=== PATIENT | male | born 1950 | race Caucasian/White ===

== ENCOUNTER 2017-04-25 10:08 | Emergency (ER) | payer MEDICARE, OTHER ==
[~2017-04-25] VITALS: Ht 182.8 cm; Wt 86.2 kg
[~2017-04-25 10:08] MED LIST: CHOLESTEROL MED; CIPROFLOXACIN500 MG PO; FLAGYL500 MG PO; FLEXERIL10 MG PO; LISINOPRIL10 MG PO; LOTRIMIN1% TP; METFORMIN500 MG PO; NAPROSYN500 MG PO; VICODIN 5/500 505 MG PO; VICODIN ES 7501 TAB PO; ZOFRAN ODT4 MG SL
[2017-04-25 10:13] VITALS: BP 167/64
[2017-04-25] MEDS ORDERED: NAPROSYN500 MG PO (10:29)
== END 2017-04-25 12:05 | disposition home or self-care (01) ==
LOC: ED 10:08
DX: S20.211A Contusion of right front wall of thorax, initial encounter (principal); R03.0 Elevated blood-pressure reading, without diagnosis of hypertension; F17.200 Nicotine dependence, unspecified, uncomplicated; Z88.6 Allergy status to analgesic agent; W18.30XA Fall on same level, unspecified, initial encounter; Y93.89 Activity, other specified; Y92.9 Unspecified place or not applicable; Y99.9 Unspecified external cause status

== ENCOUNTER → 2017-06-16 | Outpatient (CLI) | payer OTHER | END | disposition home or self-care (01) | LOC: US 12:57 | DX: E04.2 Nontoxic multinodular goiter (principal) ==

== ENCOUNTER → 2019-07-02 | Outpatient (CLI) | payer OTHER | END | disposition home or self-care (01) | LOC: US 14:56 | DX: E04.2 Nontoxic multinodular goiter (principal); R91.1 Solitary pulmonary nodule ==

== ENCOUNTER → 2019-09-15 | Outpatient (CLI) | payer OTHER ==
[2019-09-15 09:44] LABS: CREATININE 1.01 mg/dL (0.70-1.30)
== END ==
LOC: LAB 09:07 → CT 10:00
PROVIDERS: Radiology Diagnostic Radiology
DX: E04.2 Nontoxic multinodular goiter (principal); M47.812 Spondylosis without myelopathy or radiculopathy, cervical region; I65.21 Occlusion and stenosis of right carotid artery

== ENCOUNTER 2019-10-13 09:02 | Emergency (ER) | payer OTHER ==
[~2019-10-13] VITALS: Ht 182.8 cm; Wt 84.4 kg
[2019-10-13 09:27] LABS: BASO # 0.1 10*3/uL (0.0-0.1); BASO % 0.8 % (0.0-1.0); EOS # 0.2 10*3/uL (0.0-0.4); EOS % 2.3 % (1.0-4.0); HEMATOCRIT 47.9 % (42.0-52.0); HEMOGLOBIN 16.5 g/dl (14.0-18.0); LYMPH # 2.5 10*3/uL (1.3-4.4); LYMPH % 23.6 % (27.0-41.0); MEAN CELL VOLUME 90.2 fl (80.0-94.0); MEAN CORPUSCULAR HGB 31.1 pg (27.0-31.0); MEAN CORPUSCULAR HGB CONC 34.4 g/dl (33.0-37.0); MEAN PLATELET VOLUME 11.2 fl (9.6-12.3); MONO # 0.9 10*3/uL (0.1-1.0); MONO % 8.8 % (3.0-9.0); NEUT # 6.8 10*3/uL (2.3-7.9); NEUT % 64.1 % (47.0-73.0); PLATELET COUNT AUTOMATED 179 10*3/uL (130-400); RED BLOOD COUNT 5.31 10*6/uL (4.50-5.90); WHITE BLOOD COUNT 10.6 10*3/uL (4.8-10.8)
[2019-10-13 09:38] LABS: ACT PARTIAL THROMBO TIME 25.7 SECONDS (20.0-32.1); INTERNATIONAL NORM RATIO 0.9 (2.0-3.5)
[2019-10-13 09:43] LABS: ALBUMIN 4.1 gm/dl (3.1-4.5); ALKALINE PHOSPHATASE 78 U/L (45-117); BUN 9 mg/dl (7-24); CHLORIDE 108 mmol/L (98-107); CREATININE 0.83 mg/dL (0.70-1.30); POTASSIUM 3.2 mmol/L (3.5-5.1); SGOT/AST 19 IU/L (3-35); SGPT/ALT 50 U/L (12-78); SODIUM 141 mmol/L (136-145); TOTAL PROTEIN 7.1 gm/dL (6.4-8.2)
[2019-10-13 09:49] LABS: TROPONIN I < 0.015 ng/ml (<0.045)
[2019-10-13 10:30] VITALS: BP 152/64
== END 2019-10-13 12:44 | disposition home or self-care (01) ==
LOC: ED 09:02
PROVIDERS: Emergency Medicine
DX: R00.2 Palpitations (principal); R06.02 Shortness of breath; R07.9 Chest pain, unspecified; E11.9 Type 2 diabetes mellitus without complications; Z79.899 Other long term (current) drug therapy; Z88.6 Allergy status to analgesic agent

== ENCOUNTER → 2021-02-15 | Outpatient (CLI) | payer OTHER | END | disposition home or self-care (01) | LOC: CT 10:39 | PROVIDERS: ATTEND Nurse Practitioner Family | DX: I65.23 Occlusion and stenosis of bilateral carotid arteries (principal); E07.9 Disorder of thyroid, unspecified ==

== ENCOUNTER → 2022-02-18 | Day surgery (SDC) | payer OTHER ==
[~2022-02-18] VITALS: Ht 182.8 cm; Wt 80.3 kg
[~2022-02-18] MED LIST changes: +AMLODIPINE BESY10 MG PO; +LIPITOR80 MG PO; +METFORMIN HYD1000 MG PO; +VITAMIN D250 MC1 PO; +ZESTRIL20 MG PO
[2022-02-18 08:10] VITALS: BP 131/59
[2022-02-18 09:00] VITALS: BP 100/49
[2022-02-18 09:15] VITALS: BP 121/51
[2022-02-18 09:30] VITALS: BP 134/63
[2022-02-18 11:23] VITALS: BP 100/49
== END | disposition home or self-care (01) ==
LOC: SDC 02-14 12:30
PROVIDERS: ATTEND Surgery
DX: Z12.11 Encounter for screening for malignant neoplasm of colon (principal); K57.30 Diverticulosis of large intestine without perforation or abscess without bleeding; E11.9 Type 2 diabetes mellitus without complications; I10 Essential (primary) hypertension; Z86.010 Personal history of colon polyps; Z88.5 Allergy status to narcotic agent; F43.10 Post-traumatic stress disorder, unspecified; Z79.899 Other long term (current) drug therapy

== ENCOUNTER 2023-09-30 11:10 | Emergency (ER) | payer OTHER ==
[~2023-09-30] VITALS: Ht 182.8 cm; Wt 81.6 kg
[2023-09-30 11:48] VITALS: BP 168/49
== END 2023-09-30 14:57 | disposition left against medical advice (07) ==
LOC: ED 11:10
DX: M25.552 Pain in left hip (principal); Z53.21 Procedure and treatment not carried out due to patient leaving prior to being seen by health care provider